=== PATIENT | female | born 1980 | race African-American/Black ===

== ENCOUNTER 2024-02-17 03:47 | Emergency (ER) | payer OTHER, SELFPAY ==
[2024-02-17 03:59] VITALS: BP 133/75; BMI 30.8
[2024-02-17 04:00] VITALS: BP 132/88
[2024-02-17 04:13] LABS: % Basophils 0.8 % (0-2); % Eosinophils 3.7 % (0-6); % Immature Granulocytes 0.6 % (0-0.5); % Lymphocytes 26.1 % (20.5-51.1); % Monocytes 12.9 % (1.7-9.3); % Neutrophils 55.9 % (42.2-75.2); Absolute Basophils 0.1 10^3/uL (0-0.2); Absolute Eosinophils 0.3 10^3/uL (0-0.7); Absolute Immature Granulocytes 0.1 10^3/uL (0-0.05); Absolute Lymphocytes 2.3 10^3/uL (1.2-3.4); Absolute Monocytes 1.1 10^3/uL (0.1-0.6); Absolute Neutrophils 4.9 10^3/uL (1.4-6.5); Hematocrit 30.8 % (37.0-47.0); Hemoglobin 9.3 g/dL (12.0-16.0); Mean Corp Hgb Conc. 30.2 g/dL (33.0-37.0); Nucleated Red Blood Cells % 0 %; Red Blood Cell Count 4.22 10^6/uL (4.20-5.40); Red Cell Dist. Width 20.7 % (11.5-14.5); White Blood Cell Count 8.7 10^3/uL (4.8-10.8)
[2024-02-17 04:39] LABS: Mean Platelet Volume 9.3 fL (7.4-10.4); Platelet Count 432 10^3/uL (130-400)
[2024-02-17 04:40] LABS: Troponin I < 0.012 ng/ml
[2024-02-17 04:49] LABS: Blood Urea Nitrogen 14 mg/dl (7-17); Calcium 9.4 mg/dl (8.4-10.2); Carbon Dioxide 24 mmol/L (22-30); Chloride 101 mmol/L (98-107); Estimated Creatinine Clearance > 125 ml/min; Glucose 85 mg/dl (70-99); Sodium 134 mmol/L (135-145); eGFR > 60.00
[2024-02-17 05:00] VITALS: BP 147/87
[2024-02-17 06:00] VITALS: BP 134/86
--- NOTE | 2024-02-17 06:28 | ED.GENMED ---
History of Present Illness
General
Chief Complaint: Chest Pain
Source: patient
Exam Limitations: none
Time Seen by Provider: 02/17/24 06:23
History of Present Illness
History of Present Illness:
See MDM
Past History
Past History
ED Past Medical History: HTN and Psychiatric
ED Past Surgical History: None
Social History
Tobacco: Non-smoker
Alcohol: None
Phy Exam
Physical Exam
Physical Exam:
See MDM
Scores
Heart Score for Chest Pain Patients
STEMI patient?: No
History: Slightly or Non-Suspicious
ECG: Normal
Age: >45 - <65 years
Risk Factors: 1 or 2 Risk Factors
Troponin: </= Normal Limit
Heart Score for Chest Pain Patients: 2
Heart Score Risk: 2.5% MACE over next 6 weeks
Course
Orders/Labs/Results
Orders:
Orders
02/17/24 03:49
Electrocardiogram (*1) Urgent
Reason for Study: Chest Pain
Cardiac Monitoring- Treatment ONCE
EKG- Treatment ONCE
02/17/24 03:59
Basic Metabolic Panel Urgent
Complete Blood Count/With Diff Urgent
Troponin I Urgent
Abnormal Lab Results
02/17/24
03:59
Hgb 9.3 L g/dL
(12.0-16.0)
Hct 30.8 L %
(37.0-47.0)
MCV 73.0 L fL
(81.0-99.0)
MCH 22.0 L pg
(27.0-31.0)
MCHC 30.2 L g/dL
(33.0-37.0)
RDW 20.7 H %
(11.5-14.5)
Plt Count 432 H 10^3/uL
(130-400)
Abs Immat Gran (auto) 0.1 H 10^3/uL
(0-0.05)
Absolute Monos (auto) 1.1 H 10^3/uL
(0.1-0.6)
Immature Gran % 0.6 H %
(0-0.5)
Monocytes % 12.9 H %
(1.7-9.3)
Sodium 134 L mmol/L
(135-145)
02/17/24 03:59
02/17/24 04:22
Vital Signs
Initial and Last Documented VS:
Initial Vital Signs
Temp Pulse Resp BP Pulse Ox
97.9 F 69 16 133/75 98
02/17/24 03:59 02/17/24 03:59 02/17/24 03:59 02/17/24 03:59 02/17/24 03:59
Last Documented Vital Signs
Temp Pulse Resp BP Pulse Ox
97.9 F 69 16 133/75 98
02/17/24 03:59 02/17/24 03:59 02/17/24 03:59 02/17/24 03:59 02/17/24 03:59
MDM/Problems Addressed
Differential Diagnosis Includes:
HPI and MDM Narrative:
43-year-old female presenting from [facility] for evaluation of left-sided chest pain. Patient woke up and noted that the pain was going down her left hand. It is not exertional. Went to the room, patient is lying in bed
comfortably. Patient seen laughing and eating. She is in no acute distress. Symptoms are nonexertional. Heart regular rate and rhythm and lungs clear. No leg edema or tenderness to deep venous palpation.
Blood work was done prior to my assessment and troponin negative. EKG is nonischemic. I did question her anemia. Patient states she has been eating a lot of ice and complains of heavy menstrual cycle. Will place on iron tablets and discussed the
constipation concern.
Physical exam
General: Well appearing and non-toxic
HEENT: protecting airway
Neck: appears supple
CV: No evidence of cyanosis. Regular rate and rhythm
Resp: No accessory muscle use. Lungs clear
Abd: Non-distended
Extremities: No deformities. No leg edema or unilateral tenderness
Neuro: alert
Psych: Normal affect
Skin: Intact
Problems Addressed including Acute and Chronic Conditions affecting care:
1. Chest pain
Acuity: acute
Prognosis: stable
Details: Seems to be inconsistent with ACS. EKG and troponin negative. Symptoms are nonexertional. Lungs are clear throughout. No chest wall tenderness
2. Anemia
Acuity: acute
Prognosis: stable
Details: Likely in the setting of heavy menstrual cycle. Will start iron tablets
Differential Diagnosis (but not limited to): Noncardiac chest pain, anemia, contusion, pleurisy
Testing considered: Chest x-ray but lungs clear
Drug therapy (if applicable): OTC meds, please see d/c instruction regarding Rx drugs
Amount and/or Complexity of Data Reviewed
Clinical info obtained from: Patient
External data reviewed: N/A
Labs I independently reviewed (but not limited to): Troponin normal, anemia
Radiology: N/A
Pulse Ox: not hypoxic
EKG independently reviewed: Sinus rhythm, normal axis, no STEMI
Crm Architect: N/A
Critical Care: N/A
Risk of Complication:
Social Determinants of health: Poor social support
Discussed with other providers: N/A
Escalation of Care includes Admit/Obs: After being observed in the Emergency Department, pt stable for discharge.
Occasional wrong word or 'sound a like' substitutions may have occurred due to the inherent limitations of voice recognition software. Read the chart carefully and recognize, using context, where substitutions have occurred.
*Critical Care Note
Total Time (30-74mins, 75-104mins- exclusive of procedures): Not Applicable
ED Attending Note
-
Portions of this chart may have been created with voice recognition software.� Occasional wrong word or��sound alike� substitutions may have occurred due to the inherent limitations of voice recognition software.
Discharge Plan
Departure
Patient Disposition: [facility]
Date of Disposition: 02/17/24
Time of Disposition: 06:29
Patient with high blood pressure during this ER visit?: Yes
Discharge Problem:
Chest pain, Anemia
Instructions: Chest pain, BLOOD PRESSURE
Prescriptions:
New
Slow Fe 137 mg (45 mg iron) tablet extended release
137 mg PO DAILY Qty: 30 0RF
docusate sodium 100 mg capsule
100 mg PO DAILY Qty: 30 0RF
Referrals:
NONE,* [Family Provider] -
Activity Restrictions/Additional Instructions:
Please return for any worsening symptoms.
You may return at any time if you have further concerns.
Please talk to the doctor about repeating your hemoglobin level in the next several weeks. The iron will constipate you. Drink plenty of water and take the stool softener.
Interventions
Interventions:
*General Assessment Last Done: 02/17/24 04:05
ED- Fall Risk Assessment Last Done: 02/17/24 04:17
*ED COVID-19 Vaccine History Last Done: 02/17/24 03:59
ED- Cardiac Assessment Last Done: 02/17/24 04:17
Discharge Date and Time
Print Language: OCCITAN
== END 2024-02-17 06:49 ==
LOC: EMR 03:47
PROVIDERS: Emergency Medicine; EMERGENCY PHYSICIAN Student in an Organized Health Care Education/Training Program
DX: R07.89 Other chest pain (principal); D64.9 Anemia, unspecified; I10 Essential (primary) hypertension
CPT/HCPCS: 99283; 80048; 84484; 85025; 93005